=== PATIENT | female | born 1975 | race Caucasian/White ===

== ENCOUNTER 2018-03-30 14:09 | Inpatient (IN) | payer MEDICAID ==
[~2018-03-30] VITALS: Ht 157.5 cm; Wt 72.6 kg
[2018-03-30 14:12] VITALS: BP 127/78
--- NOTE | 2018-03-30 14:21 | NUR ---
AMBULATES TO BED 12 WITH STEADY GAIT
--- NOTE | 2018-03-30 14:30 | NUR ---
C/O ABD PAIN ASSOCIATED WITH N/V /10 FOR 1 MONTH, WORSE OVER PAST 2 DAYS. WAS SEEN AT [facility] ON 03/22/18, DC/D WITH GALLSTONES. WAS TOLD BY HER PCP (DR KAUR FROM [facility]) TO COME TO [facility] ER IF PAIN GETS WORSE. SURGICAL REFERAL PENDING, WAS TOLD SHE CAN BE ADMITTED AT [facility] IF HER PAIN WORSENS. HX: THYROID
[2018-03-30] MEDS ORDERED: MORPHINE SULFATE 2 MG/ML SYR IVP ONE (14:40)
[2018-03-30] MEDS ORDERED: ONDANSETRON 4 MG/2 ML VIAL IVP ONE (14:40)
[2018-03-30] MEDS ORDERED: KETOROLAC 30 MG/ML VIAL IVP ONE (14:40)
[2018-03-30] MEDS ORDERED: NACL 0.9% 1,000 ML IV ONE (14:40)
--- NOTE | 2018-03-30 14:55 | NUR ---
LAB AT BED SIDE
[2018-03-30 15:09] LABS: BASOPHILS % (AUTO) 0.3 % (0.0-2.0); EOSINOPHILS % (AUTO) 0.3 % (0.0-4.0); HEMATOCRIT 37.9 % (36-48); HEMOGLOBIN 12.5 g/dL (12.0-16.0); LYMPHOCYTES # (AUTO) 1.1 K/uL (2.5-16.5); MEAN CORPUSCULAR HEMOGLOBIN 28 pg (27-31); MEAN CORPUSCULAR HGB CONC 33 g/dL (33-37); MEAN CORPUSCULAR VOLUME 84.7 fL (80-94); MONOCYTES # (AUTO) 0.3 K/uL (0.8-1.0); MONOCYTES % (AUTO) 6.8 % (1.7-9.3); NEUTROPHILS # (AUTO) 3.4 K/uL (1.8-7.7); NEUTROPHILS % (AUTO) 70.6 % (42.2-75.2); PLATELET COUNT (AUTO) 243 K/uL (140-450); RED BLOOD CELL COUNT(AUTO) 4.47 MIL/uL (4.20-5.40); RED CELL DISTRIBUTION WIDTH 13.4 % (11.6-13.7); WHITE BLOOD COUNT (AUTO) 4.8 K/uL (4.8-10.8)
--- NOTE | 2018-03-30 15:15 | NUR ---
PT WILL BE ADMITTED TO THE RESIDENTS REQUESTED BY DR KAUR
[2018-03-30] MEDS: NACL 0.9% 1,000 ML IV SCH ×2 (15:22→17:30)
[2018-03-30] MEDS ORDERED: NACL 0.9% 1,000 ML IV SCH (15:24)
--- NOTE | 2018-03-30 15:24 | NUR ---
XRAY AT BEDSIDE
[2018-03-30] MEDS ORDERED: HYDROcodone/APAP 7.5/325 MG 1 TAB PO PRN (15:25)
[2018-03-30] MEDS ORDERED: ACETAMINOPHEN 325 MG TAB PO PRN (15:25)
[2018-03-30] MEDS ORDERED: DOCUSATE SODIUM 100 MG GELCAP PO PRN (15:25)
[2018-03-30] MEDS ORDERED: MORPHINE SULFATE 2 MG/ML SYR IVP PRN (15:25)
[2018-03-30] MEDS ORDERED: LORazepam 0.5 MG TAB PO PRN (15:25)
[2018-03-30] MEDS ORDERED: ONDANSETRON 4 MG/2 ML VIAL IM/IVP PRN (15:25)
[2018-03-30 15:29] LABS: ANION GAP 12.5 (8-16); CARBON DIOXIDE 25.1 mmol/L (21-32); CREATININE 0.5 mg/dL (0.6-1.3); POTASSIUM 3.6 mmol/L (3.5-5.1)
--- NOTE | 2018-03-30 15:30 | NUR ---
ULTRASOUND AT BEDSIDE
[2018-03-30 15:35] LABS: ALBUMIN 4.1 g/dL (3.4-5.0); TOTAL BILIRUBIN 0.6 mg/dL (0.0-1.0)
[2018-03-30 15:43] LABS: PROTHROMBIN TIME 10.5 secs (10.8-13.4)
[2018-03-30 15:46] LABS: APPEARANCE,URINE CLEAR (CLEAR); BILIRUBIN,URINE NEGATIVE (NEGATIVE); BLOOD, URINE MODERATE (NEGATIVE); COLOR,URINE YELLOW (YELLOW); LEUKOCYTE ESTERASE ,URINE NEGATIVE (NEGATIVE); NITRITE, URINE NEGATIVE (NEGATIVE); UGLUCOSE NEGATIVE (NEGATIVE)
[2018-03-30 16:07] LABS: BARBITURATE, URINE NEG. ng/ml (NEG <=200); BENZODIAZEPINE, URINE NEG. ng/mL (NEG <=200); CANNABINOID, URINE NEG. ng/mL (NEG <=50); COCAINE, URINE NEG. ng/mL (NEG <=300); OPIATE, URINE NEG. ng/mL (NEG <=2000); PHENCYCLIDINE SCREEN,URINE NEG. ng/mL (NEG <=25)
--- NOTE | 2018-03-30 16:55 | NUR ---
RECEIVED BEDSIDE REPORT FROM ER NURSE. PATIENT IS AWAKE, ALERT AND ORIENTEDX4. KHMER AND [employer]ZBE[employer] SPEAKER. SHE IS ABLE TO AMBULATE AND IS STEADY. IV ON L AC 20G INFUSING NS AT 100. CLEAN, DRY AND INTACT. SKIN IS INTACT. NO PAIN AT THIS TIME. BED IN LOW POSITION. CALL LIGHT WITHIN REACH. WILL CONTINUE TO MONITOR THE PATIENT.
--- NOTE | 2018-03-30 16:55 | NUR ---
Patient will be admitted to care of DR BEDOYA . Admited to TELE . Will go to room 112B . Belongings list completed. Report to KAITY BO .
[2018-03-30 17:00] VITALS: BP 104/59
[2018-03-30] MEDS ORDERED: KETOROLAC 30 MG/ML VIAL IVP PRN (17:00)
[2018-03-30] MEDS ORDERED: LEVO0.133 PO (17:01)
--- NOTE | 2018-03-30 17:59 | NUR ---
PATIENT EATING DINNER WITH HER SISTER AT BEDSIDE. NPO AFTER MIDNIGHT
--- NOTE | 2018-03-30 19:00 | NUR ---
GAVE BEDSIDE REPORT TO NEUROPSYCHOLOGIST NURSE. PATIENT ENDORSED IN STABLE CONDITION
[2018-03-30 20:00] VITALS: BP 92/61
--- NOTE | 2018-03-30 21:00 | NUR ---
PT WAS COMPLAINING OF NAUSEA AT 1999 ADMIN ZOFRAN. AT 2099 PT STATES SHE NO LONGER HAS NAUSEA. WILL CONTINUE TO MONITOR.
--- NOTE | 2018-03-30 23:51 | NUR ---
PT HR LOW AT 45 WILL CONTINUE TO MONITOR.
[2018-03-31] VITALS (8 sets, daily range): BP systolic 100–114; BP diastolic 60–78
--- NOTE | 2018-03-31 01:45 | NUR ---
PER [employer] SUPERVISOR PT HR 43-45. PT HER ON 2L NC O2.
--- NOTE | 2018-03-31 01:50 | NUR ---
PT HR IMPROVED WITH O2 2L NC HR NOW IS 47HR. PT IS ASYMPTOMATIC WILL CONTINUE TO MONITOR.
[2018-03-31] MEDS: DEXT 5% /NACL 0.9% 1,000 ML IV SCH ×2 (02:01→02:52)
--- NOTE | 2018-03-31 04:59 | NUR ---
PT IS SLEEPING NO SOB NO S/S OF DISTRESS WILL CONTINUE TO MONITOR.
[2018-03-31 06:03] LABS: BASOPHILS % (AUTO) 0.3 % (0.0-2.0); EOSINOPHILS % (AUTO) 0.4 % (0.0-4.0); HEMATOCRIT 36.4 % (36-48); HEMOGLOBIN 12.2 g/dL (12.0-16.0); LYMPHOCYTES # (AUTO) 1.1 K/uL (2.5-16.5); LYMPHOCYTES % (AUTO) 22.8 % (20.5-51.1); MEAN CORPUSCULAR HEMOGLOBIN 29 pg (27-31); MEAN CORPUSCULAR HGB CONC 33 g/dL (33-37); MEAN CORPUSCULAR VOLUME 85.1 fL (80-94); MONOCYTES # (AUTO) 0.2 K/uL (0.8-1.0); MONOCYTES % (AUTO) 4.4 % (1.7-9.3); NEUTROPHILS # (AUTO) 3.4 K/uL (1.8-7.7); NEUTROPHILS % (AUTO) 72.1 % (42.2-75.2); PLATELET COUNT (AUTO) 196 K/uL (140-450); RED BLOOD CELL COUNT(AUTO) 4.28 MIL/uL (4.20-5.40); RED CELL DISTRIBUTION WIDTH 13.4 % (11.6-13.7); WHITE BLOOD COUNT (AUTO) 4.7 K/uL (4.8-10.8)
[2018-03-31 06:11] LABS: T4 (THYROXINE) 10.9 ug/dL (4.5-12.0)
[2018-03-31 06:29] LABS: ANION GAP 8.1 (8-16); CARBON DIOXIDE 26.3 mmol/L (21-32); CREATININE 0.5 mg/dL (0.6-1.3); POTASSIUM 3.4 mmol/L (3.5-5.1)
[2018-03-31] MEDS ORDERED: LEVOTHYROXINE 0.075 MG TAB PO SCH (06:30)
[2018-03-31] MEDS ORDERED: LEVOTHYROXINE 0.112 MG, LEVOTHYROXINE 0.025 MG PO SCH ×2 (06:30)
[2018-03-31 06:37] LABS: CHOL/HDL RATIO 5.5 (1-4.5); MAGNESIUM 2.2 mg/dL (1.8-2.4); PHOSPHORUS 3.3 mg/dL (2.5-4.9)
--- NOTE | 2018-03-31 07:21 | NUR ---
PATIENT HAS BEEN SCREENED AND CATEGORIZED MODERATE RISK. PATIENT WILL BE SEEN WITHIN 3-5 DAYS OF ADMISSION. 04/02- [address], [facility]
--- NOTE | 2018-03-31 07:28 | NUR ---
ENDORSED REPORT TO DAYSHIFT NURSE AT BEDSIDE FOR CONTINUITY OF CARE.
--- NOTE | 2018-03-31 07:30 | NUR ---
RECEIVED PT ON BED AAOX4. NO SOB NOTED. NO C/O PAIN AT THIS TIME. IV TO LT AC PATENT AND INTACT. CHEST CLEAR DIMINISHED AIR ENTRY TO THE BASES, ON 2LPM OXYGEN VIA NASAL CANNULA. ABDOMEN SOFT, BOWEL SOUNDS PRESENT. NO EDEMA NOTED. NPO POST MIDNIGHT MAINTAINED FOR PLANNED PROCEDURE. INSTRUCTED PT TO CALL FOR ASSISTANCE, CALL LIGHT WITHIN REACH, PT VERBALIZED UNDERSTANDING.
[2018-03-31] MEDS ORDERED: KCL 20 MEQ/WATER INJ PREMIX 100 ML IV SCH (08:08)
--- NOTE | 2018-03-31 10:00 | NUR ---
CALLED SURGERY DEPT TO FOLLOW UP WITH THE PLANNED PROCEDURE, NO ANSWER. CALLED COMMAND AND CONTROL SYSTEMS INTEGRATOR FARIDA AND STATED THAT HE RECEIVED A CALL FROM DR. KAUR AND STATED THAT SURGERY WILL BE POSTPONED A LITTLE LATER TODAY. NOTIFIED PT, VERBALIZED UNDERSTANDING. NPO MAINTAINED.
--- NOTE | 2018-03-31 13:15 | NUR ---
PT WHEELED TO SURGERY IN STABLE CONDITION. CONSENT SIGNED EARLIER, VERBALIZED UNDERSTANDING
[2018-03-31] MEDS ORDERED: ONDANSETRON 4 MG/2 ML VIAL IVP ONE (13:16)
[2018-03-31] MEDS ORDERED: GLYCOPYRROLATE 0.2 MG/ML VIAL IV ONE (13:16)
[2018-03-31] MEDS ORDERED: DEXAMETHASONE 4 MG/ML VIAL IVP ONE (13:16)
[2018-03-31] MEDS ORDERED: SUCCINYLCHOLINE CHLORIDE 200 MG/10 ML VIAL IV ONE (13:16)
[2018-03-31] MEDS ORDERED: PHENYLEPHRINE 10 MG/ML VIAL IM ONE (13:16)
[2018-03-31] MEDS ORDERED: ROCURONIUM 50 MG/5 ML VIAL IV ONE (13:16)
[2018-03-31] MEDS ORDERED: LIDOCAINE MPF 2% 100 MG/5 ML VIAL INJ ONE (13:16)
[2018-03-31] MEDS ORDERED: ePHEDrine 50 MG/ML VIAL IV ONE (13:16)
[2018-03-31] MEDS ORDERED: PROPOFOL 200 MG/20 ML VIAL IV ONE (13:16)
[2018-03-31] MEDS ORDERED: DESFLURANE 240 ML BTL INH ONE (13:16)
[2018-03-31] MEDS ORDERED: ceFAZolin 1,000 MG VIAL ONE (13:22)
[2018-03-31] MEDS ORDERED: BUPIVACAINE-MPF 0.25% 30 ML VIAL INJ ONE (13:23)
[2018-03-31] MEDS ORDERED: MIDAZOLAM 2 MG/2 ML VIAL ONE (13:29)
[2018-03-31] MEDS ORDERED: fentaNYL 0.05 MG/ML VIAL ONE (13:30)
[2018-03-31] MEDS ORDERED: ONDANSETRON 4 MG/2 ML VIAL IVP PRN (13:50)
[2018-03-31] MEDS ORDERED: HYDROmorphone 1 MG/ML AMP IVP PRN ×2 (13:50→14:30)
[2018-03-31] MEDS ORDERED: MORPHINE SULFATE 4 MG/ML SYR IV PRN (14:30)
[2018-03-31] MEDS ORDERED: ONDANSETRON 4 MG/2 ML VIAL IV PRN (14:30)
[2018-03-31] MEDS ORDERED: HYDROcodone/APAP 5/325 MG 1 TAB TAB PO PRN (14:30)
[2018-03-31] MEDS ORDERED: MORPHINE SULFATE 2 MG/ML SYR IVP PRN (14:30)
[2018-03-31] MEDS ORDERED: ACETAMINOPHEN 325 MG TAB PO PRN (14:30)
[2018-03-31] MEDS ORDERED: MORPHINE SULFATE 4 MG/ML SYR ONE (15:11)
--- NOTE | 2018-03-31 15:30 | NUR ---
PT BACK FROM PACU IN STABLE CONDITION. AAOX4. NO SOB NOTED. NO COMPLAINTS MADE. WITH 4 SMALL ABDOMINAL INCISIONS, BANDAIDS DRY AND INTACT. WILL CONTINUE TO MONITOR PT POSTOPERATIVELY.
[2018-03-31] MEDS ORDERED: ACET-2869 PO (16:31)
--- NOTE | 2018-03-31 17:00 | NUR ---
PT TOLERATED ICE CHIPS. NO N&V NOTED.
--- NOTE | 2018-03-31 17:30 | NUR ---
PT VOIDED FREELY TO THE BATHROOM. ACTIVITY TOLERATED WELL.
--- NOTE | 2018-03-31 18:00 | NUR ---
INSTRUCTED ON INCENTIVE SPIROMETRY, PT VERBALIZED UNDERSTANDING.
--- NOTE | 2018-03-31 18:25 | NUR ---
PT TOLERATED CLEAR LIQUIDS WELL. NO N&V NOTED.
--- NOTE | 2018-03-31 18:45 | NUR ---
DISCHARGE INSTRUCTIONS AND PRESCRIPTIONS GIVEN TO PT WHICH VERBALIZED FULL UNDERSTANDING OF THE TEACHINGS AND THE NEED TO FOLLOW UP DR. KAUR ON 04/09/2018. ARM BANDS AND IV REMOVED, CANNULA TIP INTACT.
--- NOTE | 2018-03-31 18:55 | NUR ---
PT WHEELED OUT TO THE PARKING LOT IN STABLE CONDITION. NO SOB NOTED. NO COMPLAINTS MADE. 4 SMALL ABDOMINAL SURGICAL INCISIONS CLEAN, DRY AND INTACT. PT IS D/C HOME WITH AND SISTER.
== END 2018-03-31 18:55 | disposition home or self-care (01) | DRG 263 ==
LOC: MED 14:09 → MTU 15:24
PROVIDERS: ADMIT Family Medicine; ATTEND Family Medicine
PROC: 0FT44ZZ Resection of Gallbladder, Percutaneous Endoscopic Approach (ICD-10-PCS; principal; 2018-03-31 09:30)
DX: K80.62 Calculus of gallbladder and bile duct with acute cholecystitis without obstruction (principal); E03.9 Hypothyroidism, unspecified; R31.9 Hematuria, unspecified; E87.6 Hypokalemia
CPT/HCPCS: 36415; 71045; 76705; 80048; 80053; 80305; 81003; 81025; 82150; 82374; 83036; 83690; 83735; 83880; 84100; 84436; 84479; 84484; 84703; 85025; 85610; 85730; 86886; 86900; 86901; 87081; 88304; 93005; 96361; 96374; 96375; 99285; J0330; J0690; J1100; J1885; J2001; J2250; J2270; J2370; J2405; J2704; J3010; J3480; J3490; J7030; J7042; Q0092

== ENCOUNTER 2018-04-03 14:21 | Emergency (ER) | payer MEDICAID ==
[~2018-04-03] VITALS: Ht 160 cm; Wt 73.5 kg
[~2018-04-03 14:21] MED LIST: ACET-2869 PO; LEVO0.133 PO
[2018-04-03 14:30] VITALS: BP 107/67
--- NOTE | 2018-04-03 14:45 | NUR ---
PT PRESENTS TO ED WITH COMPLAINTS OF RUQ ABDOMINAL PAIN X 2 DAYS. PATIENT REPORTS SHE RECENTLY HAD GALLBLADDER SURGERY AND HAS BEEN IN PAIN AND BLOATED SINCE. SKIN IS PINK/WARM/DRY; AAOX4 WITH EVEN AND STEADY GAIT; LUNGS CLEAR BL; HR EVEN AND REGULAR; PT DENIES ANY FEVER, CP, SOB, OR COUGH AT THIS TIME; PATIENT STATES PAIN OF 6/10 AT THIS TIME; VSS; PATIENT POSITIONED FOR COMFORT; HOB ELEVATED; BEDRAILS UP X1; BED DOWN. ER MD MADE AWARE OF PT STATUS.
[2018-04-03] MEDS ORDERED: DICYCLOMINE HCL LIQUID 10 MG/5 ML UDC PO ONE (15:35)
[2018-04-03] MEDS ORDERED: ALUMINUM HYD/MAG/SIMETHICONE 30 ML UDC PO ONE (15:35)
[2018-04-03] MEDS ORDERED: LIDOCAINE VISCOUS 2% 20 ML UDC PO ONE (15:35)
--- NOTE | 2018-04-03 15:43 | NUR ---
XRAY AT BEDSIDE
[2018-04-03 16:54] VITALS: BP 107/67
--- NOTE | 2018-04-03 16:54 | NUR ---
Patient discharged with v/s stable. Written and verbal after care instructions given and explained. Patient alert, oriented and verbalized understanding of instructions. Ambulatory with steady gait. All questions addressed prior to discharge. ID band removed. Patient advised to follow up with PMD. Rx of OMEPRAZOLE AND LACTULOSE given. Patient educated on indication of medication including possible reaction and side effects. Opportunity to ask questions provided and answered.
== END 2018-04-03 16:54 | disposition home or self-care (01) ==
LOC: MED 14:21
DX: K21.9 Gastro-esophageal reflux disease without esophagitis (principal); Z90.49 Acquired absence of other specified parts of digestive tract; Z79.1 Long term (current) use of non-steroidal anti-inflammatories (NSAID)
CPT/HCPCS: 74018; 81025; 99283; Q0092

== ENCOUNTER 2019-01-15 04:44 | Emergency (ER) | payer MEDICAID, OTHER ==
[~2019-01-15] VITALS: Ht 157.5 cm; Wt 81.6 kg
[~2019-01-15 04:44] MED LIST changes: -ACET-2869 PO; +HYDR-5122 PO
[2019-01-15 04:46] VITALS: BP 124/74
--- NOTE | 2019-01-15 04:53 | NUR ---
PT AMBULATED TO BED #11
--- NOTE | 2019-01-15 04:55 | NUR ---
PT C/O ABDOMINAL PAIN X 3 DAYS. DENIES N/V. SOMETIMES PT HAS DIARHEA AND SOMETIMES CONSTIPATION. DENIES FEVER. PATIENT STATES TENDERNESS ON RIGHT UPPER QUADRANT. STATES SHE HAD HER GALLBLADDER REMOVED 1 YEAR AGO AND HAS HAD ABD ISSUES SINCE THEN. STATES SHE IS NON COMPLIANT WITH DIET RESTRICTIONS.
--- NOTE | 2019-01-15 05:05 | NUR ---
Dr. Navarro evaluating patient at bedside.
[2019-01-15] MEDS ORDERED: DICYCLOMINE HCL LIQUID 10 MG/5 ML UDC PO ONE (06:00)
[2019-01-15] MEDS ORDERED: KETOROLAC 60 MG/2 ML VIAL IM ONE (06:00)
[2019-01-15] MEDS ORDERED: NACL 0.9% 1,000 ML IV ONE (06:00)
--- NOTE | 2019-01-15 06:10 | NUR ---
LABS DRAWN AND SENT TO LAB.
[2019-01-15 06:29] LABS: BASOPHILS % (AUTO) 0.3 % (0.0-2.0); EOSINOPHILS # (AUTO) 0.1 K/uL (0-0.4); EOSINOPHILS % (AUTO) 1.3 % (0.0-4.0); HEMATOCRIT 38.3 % (36-48); HEMOGLOBIN 12.8 g/dL (12.0-16.0); LYMPHOCYTES # (AUTO) 1.3 K/uL (2.5-16.5); LYMPHOCYTES % (AUTO) 25.1 % (20.5-51.1); MEAN CORPUSCULAR HEMOGLOBIN 28 pg (27-31); MEAN CORPUSCULAR HGB CONC 33 g/dL (33-37); MEAN CORPUSCULAR VOLUME 84.2 fL (80-94); MONOCYTES # (AUTO) 0.2 K/uL (0.8-1.0); MONOCYTES % (AUTO) 4.8 % (1.7-9.3); NEUTROPHILS # (AUTO) 3.5 K/uL (1.8-7.7); NEUTROPHILS % (AUTO) 68.5 % (42.2-75.2); PLATELET COUNT (AUTO) 246 K/uL (140-450); RED BLOOD CELL COUNT(AUTO) 4.55 MIL/uL (4.20-5.40); WHITE BLOOD COUNT (AUTO) 5.1 K/uL (4.8-10.8)
[2019-01-15 06:30] LABS: ANION GAP 12.3 (8-16); CARBON DIOXIDE 27.6 mmol/L (21-32); CREATININE 0.7 mg/dL (0.6-1.3); POTASSIUM 3.9 mmol/L (3.5-5.1)
[2019-01-15 06:35] LABS: ALBUMIN 3.8 g/dL (3.4-5.0); TOTAL BILIRUBIN 0.4 mg/dL (0.0-1.0)
[2019-01-15 06:43] VITALS: BP 124/74
--- NOTE | 2019-01-15 06:44 | NUR ---
Patient discharged with v/s stable. Written and verbal after care instructions given and explained. Patient alert, oriented and verbalized understanding of instructions. Ambulatory with steady gait. All questions addressed prior to discharge. ID band removed. Patient advised to follow up with PMD. Rx of BENTYL given. Patient educated on indication of medication including possible reaction and side effects. Opportunity to ask questions provided and answered.
== END 2019-01-15 06:44 | disposition home or self-care (01) ==
LOC: MED 04:44
DX: A08.4 Viral intestinal infection, unspecified (principal); Z90.49 Acquired absence of other specified parts of digestive tract; Z79.899 Other long term (current) drug therapy
CPT/HCPCS: 36415; 80053; 81002; 81025; 85025; 96372; 99283; J1885

== ENCOUNTER 2020-12-11 09:35 | Emergency (ER) | payer OTHER ==
[~2020-12-11] VITALS: Ht 160 cm; Wt 81.2 kg
[2020-12-11 09:37] VITALS: BP 128/77
--- NOTE | 2020-12-11 09:38 | NUR ---
Patient ambulated to bed 12 with steady/even gait.
--- NOTE | 2020-12-11 09:45 | NUR ---
45 y/o F coming in from home with c/c RLQ abdominal pain. Patient presents A&Ox4, ambulatory and states RLQ abd pain x 5 days. Patient rates pain 6/10, dull/intermittent, radiating to lower pelvis that worsens while laying down. Pt states associated nausea. Pt denies vomiting, dizziness, headache, SOB, CP, back pain, urinary symptoms. Pt denies any medications prior to arrival. Abdomen soft, round. Bowel sounds normoactive x 4 quadrants. Pt placed onto motion picture set up worker. Bed locked in lowest position, side rails x 1, call light in reach. PMH: Thyroidism Meds: Sx: Choleccystectomy
--- NOTE | 2020-12-11 09:50 | NUR ---
Dr. Rosa is evaluating patient at bedside.
--- NOTE | 2020-12-11 09:55 | NUR ---
Lab at bedside.
--- NOTE | 2020-12-11 10:11 | NUR ---
Ultrasound at bedside.
[2020-12-11 10:18] LABS: BASOPHILS % (AUTO) 0.7 % (0.0-2.0); EOSINOPHILS % (AUTO) 0.3 % (0.0-4.0); HEMATOCRIT 37.9 % (36-48); HEMOGLOBIN 12.7 g/dL (12.0-16.0); LYMPHOCYTES # (AUTO) 1.2 K/uL (2.5-16.5); LYMPHOCYTES % (AUTO) 18.6 % (20.5-51.1); MEAN CORPUSCULAR HEMOGLOBIN 28 pg (27-31); MEAN CORPUSCULAR HGB CONC 34 g/dL (33-37); MEAN CORPUSCULAR VOLUME 84.5 fL (80-94); MONOCYTES # (AUTO) 0.3 K/uL (0.8-1.0); MONOCYTES % (AUTO) 4.7 % (1.7-9.3); NEUTROPHILS # (AUTO) 4.8 K/uL (1.8-7.7); NEUTROPHILS % (AUTO) 75.7 % (42.2-75.2); PLATELET COUNT (AUTO) 240 K/uL (140-450); RED BLOOD CELL COUNT(AUTO) 4.49 MIL/uL (4.20-5.40); RED CELL DISTRIBUTION WIDTH 13.6 % (11.6-13.7); WHITE BLOOD COUNT (AUTO) 6.3 K/uL (4.8-10.8)
--- NOTE | 2020-12-11 10:30 | NUR ---
Patient resting in position of comfort. life guard remains in place. Respirations even/unlabored. Bed locked in lowest position, side rails x 1, call light in reach.
[2020-12-11 10:46] LABS: ALBUMIN 3.9 g/dL (3.4-5.0); ANION GAP 13.6 (8-16); CARBON DIOXIDE 25.3 mmol/L (21-32); CREATININE 0.7 mg/dL (0.6-1.3); POTASSIUM 3.9 mmol/L (3.5-5.1); TOTAL BILIRUBIN 0.7 mg/dL (0.0-1.0)
--- NOTE | 2020-12-11 11:38 | NUR ---
Dr. Rosa is reevaluating patient at bedside.
[2020-12-11] MEDS ORDERED: ONDA4TAB PO (11:47)
[2020-12-11] MEDS ORDERED: NAPR-54 PO (11:47)
--- NOTE | 2020-12-11 12:00 | NUR ---
Patient discharged with v/s stable. Written and verbal after care instructions given and explained. Patient alert, oriented and verbalized understanding of instructions. Ambulatory with steady gait. All questions addressed prior to discharge. ID band removed. Patient advised to follow up with PMD. Rx of Naproxen 500mg PO BID PRN PAIN, and zofran 4mg PO Q6H PRN N/V given. Patient educated on indication of medication including possible reaction and side effects. Opportunity to ask questions provided and answered.
== END 2020-12-11 12:00 | disposition home or self-care (01) ==
LOC: MED 09:35
DX: R10.30 Lower abdominal pain, unspecified (principal)
CPT/HCPCS: 36415; 76856; 80053; 81002; 81025; 85025; 99284